=== PATIENT | male | born 1950 | race Caucasian/White ===

== ENCOUNTER 2020-07-11 08:47 | Outpatient (REF) | payer MEDICARE, BC, SELFPAY ==
[2020-07-11 10:07] LABS: MANUAL DIFF FLAG NO
[2020-07-11 10:15] LABS: Basophils Percent Auto 0.7 % (0-2); Eosinophils Absolute Auto 0.1 X10*3/uL (0.0-0.4); Eosinophils Percent Auto 2.1 % (0-4); Hemoglobin 16.2 g/dl (14.0-18.0); Imm Gran Abs Auto 0.02 X10*3/uL (0.00-0.03); Imm Gran Pct Auto 0.3 % (0.0-0.4); Mean Corpuscular HGB Conc 33.1 g/dl (31.0-36.0); Mean Corpuscular Hemoglobin 29.3 pg (27.0-33.0); Mean Corpuscular Volume 88.8 fL (80-98); Mean Platelet Volume 10.2 fL (9.4-12.4); Monocytes Absolute Auto 0.4 X10*3/uL (0.1-1.2); Monocytes Percent Auto 6.7 % (2-11); Neutrophils Absolute Auto 4.2 X10*3/uL (2.0-8.3); Neutrophils Percent Auto 72.2 % (45-73); Platelet Count 174 X10*3/uL (160-400); Red Blood Count 5.52 X10*6/uL (4.60-5.80); Red Cell Distribution Width 12.6 % (11.0-16.0); White Blood Count 5.8 X10*3/uL (4.8-10.8)
[2020-07-11 10:43] LABS: Alanine Aminotransferase 16 U/L (0-40); Albumin Level 4.3 g/dL (3.5-5.0); Alkaline Phosphatase 119 U/L (39-117); Anion Gap 12 (12-20); Aspartate Amino Transferase 17 U/L (5-37); Bilirubin Total 0.7 mg/dL (0.0-1.0); Blood Urea Nitrogen 20 mg/dL (9-16); Carbon Dioxide 28 mmol/L (22-29); Chloride 105 mmol/L (96-108); Estimated Glomerular Filt Rate 59; Glucose Fasting 97 mg/dL (60-99); Potassium 4.3 mmol/l (3.3-5.1); Sodium 141 mmol/L (135-145); Total Protein 7.3 g/dL (6.5-8.0)
[2020-07-11 15:12] LABS: Cholesterol 153 mg/dL; HDL Cholesterol 35 mg/dL; LDL Cholesterol Calculated 55 mg/dl; Triglycerides 317 mg/dL
== END 2020-07-11 08:48 | disposition home or self-care (01) ==
LOC: HO.LAB 08:47
PROVIDERS: PCP Internal Medicine; Visit Provider Nurse Practitioner Family
DX: I25.10 Atherosclerotic heart disease of native coronary artery without angina pectoris (principal); E78.5 Hyperlipidemia, unspecified
CPT/HCPCS: 36415; 80053; 80061; 85025

== ENCOUNTER → 2020-07-16 12:40 | Outpatient (BNVA) | payer MEDICARE, BC, SELFPAY | PROVIDERS: PCP Internal Medicine; Referring Provider Internal Medicine; Visit Provider Nurse Practitioner Family | DX: I25.10 Atherosclerotic heart disease of native coronary artery without angina pectoris (principal); I51.89 Other ill-defined heart diseases; I45.10 Unspecified right bundle-branch block; E78.5 Hyperlipidemia, unspecified; R52 Pain, unspecified; Z95.1 Presence of aortocoronary bypass graft | CPT/HCPCS: 99214 ==

== ENCOUNTER 2020-10-23 07:07 | Outpatient (REF) | payer MEDICARE, BC, SELFPAY ==
[2020-10-23 08:41] LABS: Cholesterol 249 mg/dL; HDL Cholesterol 35 mg/dL; Triglycerides 694 mg/dL
== END 2020-10-23 07:08 | disposition home or self-care (01) ==
LOC: HO.LAB 07:07
PROVIDERS: PCP Internal Medicine; Visit Provider Nurse Practitioner Family
DX: I25.10 Atherosclerotic heart disease of native coronary artery without angina pectoris (principal); E78.5 Hyperlipidemia, unspecified
CPT/HCPCS: 36415; 80061

== ENCOUNTER 2020-11-14 07:24 | Outpatient (REF) | payer MEDICARE, BC, SELFPAY ==
[2020-11-14 08:42] LABS: Cholesterol 216 mg/dL; HDL Cholesterol 31 mg/dL; Triglycerides 420 mg/dL
== END 2020-11-14 07:25 | disposition home or self-care (01) ==
LOC: HO.LAB 07:24
PROVIDERS: PCP Internal Medicine; Visit Provider Internal Medicine Cardiovascular Disease
DX: E78.5 Hyperlipidemia, unspecified (principal)
CPT/HCPCS: 36415; 80061

== ENCOUNTER 2020-12-05 09:46 | Outpatient (REF) | payer MEDICARE, BC, SELFPAY | END 2020-12-05 09:47 | disposition home or self-care (01) | LOC: HO.LAB 09:46 | PROVIDERS: Visit Provider Internal Medicine | DX: Z20.822 Contact with and (suspected) exposure to COVID-19 (principal) | CPT/HCPCS: 36415; C9803; U0003; U0005 ==

== ENCOUNTER 2021-01-22 07:33 | Outpatient (REF) | payer MEDICARE, BC, SELFPAY ==
[2021-01-22 08:32] LABS: MANUAL DIFF FLAG NO
[2021-01-22 08:41] LABS: Basophils Absolute Auto 0.1 X10*3/uL (0.0-0.2); Basophils Percent Auto 0.8 % (0-2); Eosinophils Absolute Auto 0.2 X10*3/uL (0.0-0.4); Hemoglobin 16.6 g/dl (14.0-18.0); Imm Gran Abs Auto 0.01 X10*3/uL (0.00-0.03); Imm Gran Pct Auto 0.2 % (0.0-0.4); Lymphocytes Absolute Auto 1.4 X10*3/uL (1.2-4.9); Lymphocytes Percent Auto 22.3 % (20-40); Mean Corpuscular HGB Conc 32.5 g/dl (31.0-36.0); Mean Corpuscular Hemoglobin 28.9 pg (27.0-33.0); Mean Corpuscular Volume 88.9 fL (80-98); Mean Platelet Volume 10.1 fL (9.4-12.4); Monocytes Absolute Auto 0.4 X10*3/uL (0.1-1.2); Monocytes Percent Auto 6.9 % (2-11); Neutrophils Absolute Auto 4.3 X10*3/uL (2.0-8.3); Neutrophils Percent Auto 66.8 % (45-73); Platelet Count 190 X10*3/uL (160-400); Red Blood Count 5.74 X10*6/uL (4.60-5.80); Red Cell Distribution Width 13.1 % (11.0-16.0); White Blood Count 6.4 X10*3/uL (4.8-10.8)
[2021-01-22 09:15] LABS: Erythrocyte Sedimentation Rate 5 MM/HR (0-15)
[2021-01-22 09:18] LABS: Alanine Aminotransferase 24 U/L (0-40); Albumin Level 4.6 g/dL (3.5-5.0); Alkaline Phosphatase 130 U/L (39-117); Anion Gap 12 (12-20); Aspartate Amino Transferase 19 U/L (5-37); Bilirubin Total 0.5 mg/dL (0.0-1.0); Blood Urea Nitrogen 25 mg/dL (9-16); C Reactive Protein 0.34 mg/dL (< or = 0.50); Calcium 9.7 mg/dL (8.4-10.2); Carbon Dioxide 30 mmol/L (22-29); Chloride 105 mmol/L (96-108); Cholesterol 244 mg/dL; Estimated Glomerular Filt Rate 58; Glucose Fasting 107 mg/dL (60-99); HDL Cholesterol 35 mg/dL; Potassium 4.5 mmol/L (3.3-5.1); Sodium 142 mmol/L (135-145); Total Protein 7.8 g/dL (6.5-8.0); Triglycerides 471 mg/dL
[2021-01-22 09:39] LABS: Vitamin D 25-OH Total 31.8 ng/mL (>30)
[2021-01-23 07:47] LABS: SARS COV2 IgG Negative (Negative)
== END 2021-01-22 07:34 | disposition home or self-care (01) ==
LOC: HO.LAB 07:33
PROVIDERS: PCP Internal Medicine; Visit Provider Internal Medicine
DX: M25.50 Pain in unspecified joint (principal); I25.10 Atherosclerotic heart disease of native coronary artery without angina pectoris; F41.1 Generalized anxiety disorder; E55.9 Vitamin D deficiency, unspecified; Z20.822 Contact with and (suspected) exposure to COVID-19
CPT/HCPCS: 36415; 80053; 80061; 82306; 84443; 85025; 85652; 86140; 86431; 86769; C9803; U0003; U0005

== ENCOUNTER → 2021-01-28 15:04 | Outpatient (BNVA) | payer MEDICARE, BC, SELFPAY | PROVIDERS: PCP Internal Medicine; Visit Provider Internal Medicine Cardiovascular Disease | DX: R07.9 Chest pain, unspecified (principal); I25.10 Atherosclerotic heart disease of native coronary artery without angina pectoris; E78.5 Hyperlipidemia, unspecified; Z79.899 Other long term (current) drug therapy; Z87.891 Personal history of nicotine dependence | CPT/HCPCS: 99212 ==

== ENCOUNTER → 2021-02-08 07:50 | Outpatient (REF) | payer MEDICARE, BC, SELFPAY ==
--- NOTE | ~2021-02-08 | NM_ITS ---
EXERCISE MYOCARDIAL PERFUSION STUDY INDICATION: Coronary disease, history of bypass surgery, chest pain, assess for ischemia TECHNIQUE: The patient was brought in for an exercise perfusion study on 02/08/2021. Patient performed exercise as per Stew protocol and was injected 25 mCi of sestamibi once target heart rate was achieved. Images were obtained using the SPECT gamma camera interlaced with the gating device. Images were obtained in supine position. Resting perfusion study was performed on 02/12/2021. Patient was administered 25 mCi of sestamibi intravenously at rest. Images were then obtained in supine position. Total DLP 75mGy-cm. Images were processed with the software and compared side to side in short axis, horizontal long axis and vertical long axis views. FINDINGS: Raw images were reviewed. The stress perfusion study showed diminished tracer uptake in the mid to distal anterior/anterolateral wall; basal to mid inferior/inferolateral wall. With CT attenuation correction, these defects improve. Inferior defect seems to reversible almost completely but the anterolateral defect is still persisting to a small extent. The gated study shows low normal LV systolic function with calculated LVEF of 54%. LV cavity is normal in size. The gated study shows diminished thickening and contractility in the above segments. Resting study shows still shows a defect in the mid to distal anterolateral wall but to a lesser extent. Basal inferolateral defect is reversible. Inferior defect shows improvement but does not resolve completely. Gating at rest reveals ejection fraction at 54%. With CT attenuation correction, the inferior/inferolateral changes improve significantly but the distal anterolateral defect still persists. The findings are consistent with partially reversible defect in the mid to distal anterior/anterolateral wall; reversible defects in the basal to mid inferior/inferolateral wall. The anterior/anterolateral defect could be from ischemia/infarct. The inferior defect could be from diaphragmatic artifact based on resolution with CT attenuation correction. NM/NM cardiolite stress test IMPRESSION: 1. Myocardial perfusion imaging study shows partially reversible defect in the mid to distal anterior/anterolateral wall that could be from ischemia/infarct. Basal to mid inferior/inferolateral wall with some reversible and fixed components but with significant improvement from CT attenuation correction and hence possibly from diaphragmatic artifact but ischemic components cannot be excluded completely. 2. Gated LVEF is 54% during stress and rest. 3. Transient ischemic dilatation not present. EKG component of the test reported separately.
--- NOTE | 2021-02-08 08:00 | CA_ITS ---
Acquisition Time: 2021-02-08 08:08:55 Total Exercise Time: 00:06:06 Test Indications: Abnormal ECG Medications: ASA CLOPIDOGREL TRAMADOL LORAZAPAM Protocol: NBA Max HR: 134 BPM 88% of Pred: 151 BPM Max BP: 178/090 mmHG Max Work Load: 7.0 METS Exercise stress nuclear using Nba protocol, total of 6 min 6 sec. METS 7.00, TAPHR up to 88 %. Pt reports chest thightness 5/10 that resolves in recovery. EKG with no arrhythmias, no ischemic changes seen during exercise or in recovery. Nuclear images to follow. Normotensive response to exercise. Test reviewed with Dr. Gupta. Referred By: Leonardo Guerrero Overread By: Kristal Rodriguez NP
== END ==
LOC: HO.CARD 07:50
PROVIDERS: Visit Provider Internal Medicine Cardiovascular Disease
DX: R07.9 Chest pain, unspecified (principal)
CPT/HCPCS: 78452; 93016; 93017; 93018; A9500

== ENCOUNTER → 2021-02-14 15:41 | Outpatient (BNVA) | payer MEDICARE, BC, SELFPAY | PROVIDERS: PCP Internal Medicine; Visit Provider Internal Medicine Cardiovascular Disease | DX: I25.10 Atherosclerotic heart disease of native coronary artery without angina pectoris (principal); R07.9 Chest pain, unspecified | CPT/HCPCS: Q3014 ==

== ENCOUNTER 2021-03-06 07:16 | Outpatient (REF) | payer MEDICARE, BC, SELFPAY ==
[2021-03-06 09:11] LABS: Cholesterol 199 mg/dL; HDL Cholesterol 33 mg/dL; LDL Cholesterol Calculated 108 mg/dl; Triglycerides 294 mg/dL
== END 2021-03-06 07:17 | disposition home or self-care (01) ==
LOC: HO.LAB 07:16
PROVIDERS: PCP Internal Medicine; Visit Provider Internal Medicine Cardiovascular Disease
DX: E78.5 Hyperlipidemia, unspecified (principal)
CPT/HCPCS: 36415; 80061

== ENCOUNTER → 2021-03-11 14:45 | Outpatient (BNVA) | payer MEDICARE, BC, SELFPAY | PROVIDERS: PCP Internal Medicine; Referring Provider Internal Medicine; Visit Provider Internal Medicine Cardiovascular Disease | DX: R07.9 Chest pain, unspecified (principal); I25.10 Atherosclerotic heart disease of native coronary artery without angina pectoris; Z79.899 Other long term (current) drug therapy | CPT/HCPCS: 99212 ==

== ENCOUNTER 2021-04-16 07:17 | Outpatient (REF) | payer MEDICARE, BC, SELFPAY ==
[2021-04-16 08:59] LABS: Cholesterol 186 mg/dL; HDL Cholesterol 40 mg/dL; LDL Cholesterol Calculated 109 mg/dl; Triglycerides 185 mg/dL
== END 2021-04-16 07:18 | disposition home or self-care (01) ==
LOC: HO.LAB 07:17
PROVIDERS: Absent Provider Urology; PCP Internal Medicine; Visit Provider Internal Medicine Cardiovascular Disease
DX: I25.10 Atherosclerotic heart disease of native coronary artery without angina pectoris (principal); R97.20 Elevated prostate specific antigen [PSA]
CPT/HCPCS: 36415; 80061; 84153

== ENCOUNTER 2021-06-13 07:36 | Outpatient (REF) | payer MEDICARE, BC, SELFPAY ==
[2021-06-13 09:04] LABS: Cholesterol 187 mg/dL; HDL Cholesterol 37 mg/dL; LDL Cholesterol Calculated 115 mg/dl; Triglycerides 177 mg/dL
== END 2021-06-13 07:37 | disposition home or self-care (01) ==
LOC: HO.LAB 07:36
PROVIDERS: PCP Internal Medicine; Visit Provider Internal Medicine Cardiovascular Disease
DX: E78.5 Hyperlipidemia, unspecified (principal); I25.10 Atherosclerotic heart disease of native coronary artery without angina pectoris
CPT/HCPCS: 36415; 80061

== ENCOUNTER → 2021-06-18 14:24 | Outpatient (BNVA) | payer MEDICARE, BC, SELFPAY | PROVIDERS: PCP Internal Medicine; Visit Provider Internal Medicine Cardiovascular Disease | DX: I25.10 Atherosclerotic heart disease of native coronary artery without angina pectoris (principal); E78.5 Hyperlipidemia, unspecified | CPT/HCPCS: 99212 ==

== ENCOUNTER 2021-07-01 11:36 | Outpatient (REF) | payer MEDICARE, BC, SELFPAY | END 2021-07-01 11:37 | disposition home or self-care (01) | LOC: HO.LAB 11:36 | PROVIDERS: PCP Internal Medicine; Visit Provider Internal Medicine | DX: Z20.822 Contact with and (suspected) exposure to COVID-19 (principal) | CPT/HCPCS: U0003; U0005 ==

== ENCOUNTER → 2021-09-03 07:57 | Outpatient (BNVA) | payer MEDICARE, BC, SELFPAY | PROVIDERS: PCP Internal Medicine; Visit Provider Nurse Practitioner Family | DX: M19.041 Primary osteoarthritis, right hand (principal); M25.521 Pain in right elbow | CPT/HCPCS: 99212 ==

== ENCOUNTER 2021-09-10 08:17 | Outpatient (REF) | payer MEDICARE, BC, SELFPAY ==
[2021-09-10 09:59] LABS: Cholesterol 195 mg/dL; HDL Cholesterol 35 mg/dL; LDL Cholesterol Calculated 127 mg/dl; Triglycerides 169 mg/dL
[2021-09-12 13:42] LABS: CRP High Sensitivity 2.9 mg/L
== END 2021-09-10 08:18 | disposition home or self-care (01) ==
LOC: HO.LAB 08:17
PROVIDERS: PCP Internal Medicine; Visit Provider Internal Medicine Cardiovascular Disease
DX: E78.5 Hyperlipidemia, unspecified (principal); I25.10 Atherosclerotic heart disease of native coronary artery without angina pectoris
CPT/HCPCS: 36415; 80061; 86141

== ENCOUNTER 2021-11-28 07:22 | Outpatient (REF) | payer MEDICARE, BC, SELFPAY ==
[2021-11-28 08:44] LABS: Cholesterol 213 mg/dL; HDL Cholesterol 37 mg/dL; LDL Cholesterol Calculated 135 mg/dl; Triglycerides 206 mg/dL
== END 2021-11-28 07:23 | disposition home or self-care (01) ==
LOC: HO.LAB 07:22
PROVIDERS: PCP Internal Medicine; Visit Provider Internal Medicine Cardiovascular Disease
DX: E78.5 Hyperlipidemia, unspecified (principal)
CPT/HCPCS: 36415; 80061

== ENCOUNTER → 2021-12-03 13:53 | Outpatient (BNVA) | payer MEDICARE, BC, SELFPAY | PROVIDERS: PCP Internal Medicine Cardiovascular Disease; Visit Provider Internal Medicine Cardiovascular Disease | DX: I25.10 Atherosclerotic heart disease of native coronary artery without angina pectoris (principal); E78.5 Hyperlipidemia, unspecified | CPT/HCPCS: 93005; 99212 ==

== ENCOUNTER 2022-01-21 09:34 | Outpatient (REF) | payer MEDICARE, BC, SELFPAY ==
[2022-01-21 10:59] LABS: Alanine Aminotransferase 25 U/L (0-40); Albumin Level 4.3 g/dL (3.5-5.0); Alkaline Phosphatase 124 U/L (39-117); Anion Gap 13 (12-20); Aspartate Amino Transferase 22 U/L (5-37); Bilirubin Total 0.5 mg/dL (0.0-1.0); Blood Urea Nitrogen 19 mg/dL (9-16); Calcium 9.4 mg/dL (8.4-10.2); Carbon Dioxide 27 mmol/L (22-29); Chloride 105 mmol/L (96-108); Estimated Glomerular Filt Rate 52; Glucose Random 119 mg/dL (60-115); Potassium 4.5 mmol/L (3.3-5.1); Sodium 140 mmol/L (135-145); Total Protein 7.6 g/dL (6.5-8.0)
== END 2022-01-21 09:35 | disposition home or self-care (01) ==
LOC: HO.LAB 09:34
PROVIDERS: PCP Internal Medicine; Visit Provider Nurse Practitioner Family
DX: M19.041 Primary osteoarthritis, right hand (principal)
CPT/HCPCS: 36415; 80053

== ENCOUNTER 2022-01-23 08:29 | Outpatient (REF) | payer MEDICARE, BC, SELFPAY ==
[2022-01-23 09:24] LABS: B Type Natriuretic Peptide 15 pg/mL (<100)
== END 2022-01-23 08:30 | disposition home or self-care (01) ==
LOC: HO.LAB 08:29
PROVIDERS: PCP Internal Medicine; Visit Provider Internal Medicine Cardiovascular Disease
DX: I25.10 Atherosclerotic heart disease of native coronary artery without angina pectoris (principal); R06.02 Shortness of breath; I45.10 Unspecified right bundle-branch block
CPT/HCPCS: 36415; 83880

== ENCOUNTER → 2022-01-27 07:34 | Outpatient (REF) | payer MEDICARE, BC, SELFPAY ==
--- NOTE | 2022-01-27 07:39 | CA_ITS ---
Transthoracic Echocardiogram Patient (Last, First, Middle): Luis Miguel May, Gender: Male Date of : 1950 Age: 71 Procedure Date: 01/27/2022 Procedure Type: Transthoracic Echocardiogram Location: OP Height: 172.72 cm Weight: 77.11 kg BSA: 1.91 m2 Heart Rate: bpm BP: 120 / 78 mmHg [employer] Economist: JAY Referring MD: Leonardo Guerrero MD Symptoms: R06.02 - Shortness of breath Study Quality: Fair ECG Rhythm: Sinus Conclusions: - The left ventricular systolic function is low normal. The visually estimated ejection fraction is between 50-55%. - LV peak GLS -14%. - There is mildly decreased right ventricular systolic function. - There is mild calcification of the aortic valve. Findings Left Ventricle Normal left ventricular cavity size. There is mildly increased left ventricular wall thickness. The left ventricular systolic function is low normal. The visually estimated ejection fraction is between 50-55%. Diastolic function is normal for age. E/E prime ratio is <8, consistent with normal filling pressures. LV peak GLS -14%. Right Ventricle Normal right ventricular cavity size. There is mildly decreased right ventricular systolic function. Atria Both atria are normal in size. Aortic Valve There is a normal trileaflet aortic valve. There is mild calcification of the aortic valve. There is no aortic valve stenosis. There is no aortic valve regurgitation. Mitral Valve The mitral valve appears normal. There is trace mitral valve regurgitation. There is no mitral valve stenosis. Pulmonic Valve The pulmonic valve is likely normal. Tricuspid Valve Normal tricuspid valve structure and function. There is trace tricuspid valve regurgitation. The pulmonary artery systolic pressure is normal. Great Vessels The asc aorta and aortic arch are normal in size. Venous The inferior vena cava is normal in size and collapses less than 50% with inspiration. Pericardium/Pleural There is no evidence of pericardial effusion. Prior Study Comparison Changes noted compared to prior study dated: 01/20/2017. Slight decrease in LVEF, but within limits of variability. Decrease in RV systolic function. Measurements 2D Linear Measurements IVSd: 1.03 0.6-0.9/0.6-1.0 cm LVIDd: 3.08 3.9-5.3/4.2-5.9 cm LVIDd Index: 1.61 2.4-3.2/2.2-3.1 cm/m2 LVIDs: 2.13 2.0-3.6 cm LVPWd: 1.04 0.7-1.1 cm LA Diam: 3.30 2.7-3.8/3.0-4.0 cm LAIDs Index: 1.73 1.5-2.3 cm/m2 LV Mass: 111.67 67-162/88-224 g LV Mass Index: 58.46 43-95/49-115 g/m2 LVOT Diam: 2.10 3.0+(-)1.3 cm 2D Systolic Function EF 4C: 54.50 >55% EF 2C: 55.50 >55% EF BiP: 55.60 >55% Mitral Valve MV Pk E: 0.50 MV PK A: 0.79 MV Decel Time: 186.00 E/A: 0.60 E'Lateral: 6.09 E'Medial: 6.09 E/E' Med: 8.20 E/E' Lat: 8.20 PHT: 55.00 MVA PHT: 4.00 Decel [place]: 2.69 Aortic Valve AoV Pk Endy: 1.16 AoV Mn Endy: 0.85 AoV VTI: 0.20 AoV Pk Grad: 5.00 Aov Mn Grad: 3.00 VIJAY Cont.VTI: 3.51 LVOT LVOT Pk Endy: 1.06 LVOT Mn Endy: 0.66 LVOT VTI: 0.21 LVOT Pk Grad: 4.00 LVOT Mn Grad: 2.00 LVOT Diam: 2.10 LVOT Area: 3.46 Diastolic Function MV Pk E: 0.50 MV Pk A: 0.79 E/A: 0.60 E'Medial: 6.09 E/E' Med: 8.20 E' Laterial: 6.09 E/E' Lat: 8.20 Right Ventricle TAPSE (mm): 15.60 TVS' Endy: 10.60 Tricuspid Valve TR Pk Endy: 1.67 TR Pk Grad: 11.00 RA Press: 8.00 RVSP: 19.00 Great Vessels Aorta Sinus of Valsalva: 3.44 2.0-3.5 cm Ao Asc: 3.50 2.1-3.4 cm Ao Arch: 3.10 Updated in Other Vendor System with Status of Final Stepan Nergon MD electronically signed on 01/27/2022 12:02:42 PM with status of Final
== END ==
LOC: HO.CARD 07:34
PROVIDERS: PCP Internal Medicine; Visit Provider Internal Medicine Cardiovascular Disease
DX: R06.02 Shortness of breath (principal); I25.10 Atherosclerotic heart disease of native coronary artery without angina pectoris; I45.10 Unspecified right bundle-branch block
CPT/HCPCS: 93306; 93356

== ENCOUNTER 2022-01-29 10:34 | Outpatient (REF) | payer MEDICARE, BC, SELFPAY ==
[2022-01-29 12:33] LABS: Hematocrit 48.3 % (42.0-52.0); Hemoglobin 15.9 g/dl (14.0-18.0); Mean Corpuscular HGB Conc 32.9 g/dl (31.0-36.0); Mean Corpuscular Hemoglobin 28.9 pg (27.0-33.0); Mean Corpuscular Volume 87.7 fL (80.0-98.0); Mean Platelet Volume 9.7 fL (9.4-12.4); Platelet Count 208 X10*3/uL (160-400); Red Blood Count 5.51 X10*6/uL (4.60-5.80); White Blood Count 6.4 X10*3/uL (4.8-10.8)
[2022-01-29 12:42] LABS: INTERNATIONAL NORM RATIO 0.9 (0.9-1.1); Prothrombin Time 10.6 SEC (9.9-13.0)
[2022-01-29 12:55] LABS: Anion Gap 14 (12-20); Blood Urea Nitrogen 22 mg/dL (9-16); Calcium 10.3 mg/dL (8.4-10.2); Carbon Dioxide 28 mmol/L (22-29); Chloride 103 mmol/L (96-108); Estimated Glomerular Filt Rate > 60; Glucose Random 85 mg/dL (60-115); Potassium 4.6 mmol/L (3.3-5.1); Sodium 140 mmol/L (135-145)
== END 2022-01-29 10:35 | disposition home or self-care (01) ==
LOC: HO.LAB 10:34
PROVIDERS: PCP Internal Medicine; Referring Provider Internal Medicine; Visit Provider Internal Medicine Cardiovascular Disease
DX: R07.9 Chest pain, unspecified (principal); Z79.899 Other long term (current) drug therapy; Z87.891 Personal history of nicotine dependence
CPT/HCPCS: 36415; 80048; 85027; 85610; 93005; 99212

== ENCOUNTER 2022-02-18 07:43 | Outpatient (REF) | payer MEDICARE, BC, SELFPAY ==
[2022-02-18 08:23] LABS: Cholesterol 185 mg/dL; HDL Cholesterol 34 mg/dL; LDL Cholesterol Calculated 110 mg/dl; Triglycerides 206 mg/dL
== END 2022-02-18 07:44 | disposition home or self-care (01) ==
LOC: HO.LAB 07:43
PROVIDERS: PCP Internal Medicine; Visit Provider Internal Medicine Cardiovascular Disease
DX: I25.10 Atherosclerotic heart disease of native coronary artery without angina pectoris (principal)
CPT/HCPCS: 36415; 80061

== ENCOUNTER 2022-02-21 11:13 | Outpatient (REF) | payer MEDICARE, BC, SELFPAY ==
[2022-02-21 12:35] LABS: Hematocrit 47.6 % (42.0-52.0); Hemoglobin 15.7 g/dl (14.0-18.0); Mean Corpuscular Hemoglobin 29.1 pg (27.0-33.0); Mean Corpuscular Volume 88.3 fL (80.0-98.0); Mean Platelet Volume 9.9 fL (9.4-12.4); Platelet Count 211 X10*3/uL (160-400); Red Blood Count 5.39 X10*6/uL (4.60-5.80); White Blood Count 6.2 X10*3/uL (4.8-10.8)
[2022-02-21 12:58] LABS: INTERNATIONAL NORM RATIO 0.9 (0.9-1.1); Prothrombin Time 10.7 SEC (9.9-13.0)
[2022-02-21 13:14] LABS: Anion Gap 12 (12-20); Blood Urea Nitrogen 20 mg/dL (9-16); Calcium 9.8 mg/dL (8.4-10.2); Carbon Dioxide 27 mmol/L (22-29); Chloride 105 mmol/L (96-108); Estimated Glomerular Filt Rate 59; Glucose Random 94 mg/dL (60-115); Potassium 4.7 mmol/L (3.3-5.1); Sodium 139 mmol/L (135-145)
== END 2022-02-21 11:14 | disposition home or self-care (01) ==
LOC: HO.LAB 11:13
PROVIDERS: PCP Internal Medicine; Referring Provider Internal Medicine; Visit Provider Internal Medicine Cardiovascular Disease
DX: R07.9 Chest pain, unspecified (principal)
CPT/HCPCS: 36415; 80048; 85027; 85610; 99212

== ENCOUNTER → 2022-03-27 08:37 | Outpatient (BNVA) | payer MEDICARE, BC, SELFPAY | PROVIDERS: PCP Internal Medicine; Referring Provider Internal Medicine; Visit Provider Internal Medicine Cardiovascular Disease | DX: I25.10 Atherosclerotic heart disease of native coronary artery without angina pectoris (principal); Z95.5 Presence of coronary angioplasty implant and graft | CPT/HCPCS: 99212 ==

== ENCOUNTER 2022-05-08 07:17 | Outpatient (REF) | payer MEDICARE, BC, SELFPAY ==
[2022-05-08 07:41] LABS: MANUAL DIFF FLAG NO
[2022-05-08 08:23] LABS: Basophils Absolute Auto 0.1 X10*3/uL (0.0-0.2); Basophils Percent Auto 0.8 % (0-2); Eosinophils Absolute Auto 0.2 X10*3/uL (0.0-0.4); Eosinophils Percent Auto 2.2 % (0-4); Hemoglobin 16.1 g/dl (14.0-18.0); Imm Gran Abs Auto 0.05 X10*3/uL (0.00-0.03); Imm Gran Pct Auto 0.7 % (0.0-0.4); Lymphocytes Absolute Auto 1.5 X10*3/uL (1.2-4.9); Lymphocytes Percent Auto 21.3 % (20-40); Mean Corpuscular HGB Conc 33.5 g/dl (31.0-36.0); Mean Corpuscular Hemoglobin 28.9 pg (27.0-33.0); Mean Corpuscular Volume 86.2 fL (80.0-98.0); Mean Platelet Volume 9.7 fL (9.4-12.4); Monocytes Absolute Auto 0.6 X10*3/uL (0.1-1.2); Neutrophils Absolute Auto 4.8 x10*3/uL (2.0-8.3); Platelet Count 210 X10*3/uL (160-400); Red Blood Count 5.57 X10*6/uL (4.60-5.80); Red Cell Distribution Width 13.2 % (11.0-16.0); White Blood Count 7.2 X10*3/uL (4.8-10.8)
[2022-05-08 08:50] LABS: Alanine Aminotransferase 21 U/L (0-40); Albumin Level 4.5 g/dL (3.5-5.0); Alkaline Phosphatase 124 U/L (39-117); Anion Gap 16 (12-20); Aspartate Amino Transferase 17 U/L (5-37); Bilirubin Total 0.5 mg/dL (0.0-1.0); Blood Urea Nitrogen 23 mg/dL (9-16); C Reactive Protein 0.24 mg/dL (< or = 0.50); Calcium 9.2 mg/dL (8.4-10.2); Carbon Dioxide 25 mmol/L (22-29); Chloride 105 mmol/L (96-108); Cholesterol 156 mg/dL; Estimated Glomerular Filt Rate 44; Glucose Fasting 113 mg/dL (60-99); HDL Cholesterol 37 mg/dL; LDL Cholesterol Calculated 52 mg/dl; Potassium 4.6 mmol/L (3.3-5.1); Sodium 141 mmol/L (135-145); Total Protein 7.7 g/dL (6.5-8.0); Triglycerides 336 mg/dL
[2022-05-08 08:55] LABS: Cholesterol 155 mg/dL; HDL Cholesterol 37 mg/dL; LDL Cholesterol Calculated 50 mg/dl; Triglycerides 344 mg/dL
[2022-05-08 09:04] LABS: Erythrocyte Sedimentation Rate 7 MM/HR (0-15)
[2022-05-08 09:12] LABS: Thyroid Stimulating Hormone 2.27 uIU/mL (0.32-4.0); Vitamin D 25-OH Total 45.8 ng/mL (>30)
[2022-05-10 05:02] LABS: Lyme Abs Screen <0.90 index
[2022-05-12 13:16] LABS: SARS COV2 IgG NEGATIVE
== END 2022-05-08 07:18 | disposition home or self-care (01) ==
LOC: HO.LAB 07:17
PROVIDERS: Absent Provider Internal Medicine; PCP Internal Medicine; Visit Provider Internal Medicine Cardiovascular Disease
DX: Z20.822 Contact with and (suspected) exposure to COVID-19 (principal); R07.1 Chest pain on breathing; I25.10 Atherosclerotic heart disease of native coronary artery without angina pectoris; F41.1 Generalized anxiety disorder; E55.9 Vitamin D deficiency, unspecified
CPT/HCPCS: 36415; 80053; 80061; 82306; 84443; 85025; 85652; 86140; 86617; 86618; 86769

== ENCOUNTER 2022-06-20 08:17 | Outpatient (REF) | payer MEDICARE, BC, SELFPAY ==
[2022-06-20 08:57] LABS: Cholesterol 153 mg/dL; HDL Cholesterol 31 mg/dL; Triglycerides 479 mg/dL
== END 2022-06-20 08:18 | disposition home or self-care (01) ==
LOC: HO.LAB 08:17
PROVIDERS: PCP Internal Medicine; Visit Provider Internal Medicine Cardiovascular Disease
DX: I25.10 Atherosclerotic heart disease of native coronary artery without angina pectoris (principal)
CPT/HCPCS: 36415; 80061

== ENCOUNTER → 2022-06-26 09:01 | Outpatient (BNVA) | payer MEDICARE, BC, SELFPAY | PROVIDERS: PCP Internal Medicine; Referring Provider Internal Medicine; Visit Provider Internal Medicine Cardiovascular Disease | DX: I25.10 Atherosclerotic heart disease of native coronary artery without angina pectoris (principal) | CPT/HCPCS: 99212 ==

== ENCOUNTER 2022-08-06 07:05 | Outpatient (REF) | payer MEDICARE, BC, SELFPAY ==
[2022-08-06 07:50] LABS: Cholesterol 128 mg/dL; HDL Cholesterol 31 mg/dL; LDL Cholesterol Calculated 44 mg/dl; Triglycerides 269 mg/dL
[2022-08-09 14:36] LABS: CRP High Sensitivity 1.7 mg/L
== END 2022-08-06 07:06 | disposition home or self-care (01) ==
LOC: HO.LAB 07:05
PROVIDERS: PCP Internal Medicine; Visit Provider Internal Medicine Cardiovascular Disease
DX: I25.10 Atherosclerotic heart disease of native coronary artery without angina pectoris (principal); E78.5 Hyperlipidemia, unspecified
CPT/HCPCS: 36415; 80061; 86141

== ENCOUNTER 2022-08-14 07:54 | Outpatient (REF) | payer MEDICARE, BC, SELFPAY ==
[2022-08-14 11:47] LABS: Alanine Aminotransferase 17 U/L (0-40); Albumin Level 4.6 g/dL (3.5-5.0); Alkaline Phosphatase 110 U/L (39-117); Anion Gap 14 (12-20); Aspartate Amino Transferase 16 U/L (5-37); Bilirubin Total 0.4 mg/dL (0.0-1.0); Blood Urea Nitrogen 24 mg/dL (9-16); Calcium 9.5 mg/dL (8.4-10.2); Carbon Dioxide 26 mmol/L (22-29); Chloride 106 mmol/L (96-108); Cholesterol 119 mg/dL; Estimated Glomerular Filt Rate 55; Glucose Fasting 121 mg/dL (60-99); HDL Cholesterol 42 mg/dL; LDL Cholesterol Calculated 46 mg/dl; Potassium 4.5 mmol/L (3.3-5.1); Sodium 141 mmol/L (135-145); Total Protein 7.5 g/dL (6.5-8.0); Triglycerides 156 mg/dL
== END 2022-08-14 07:55 | disposition home or self-care (01) ==
LOC: HO.HMGCLDS 07:54
PROVIDERS: PCP Internal Medicine; Visit Provider Internal Medicine
DX: I25.10 Atherosclerotic heart disease of native coronary artery without angina pectoris (principal)
CPT/HCPCS: 36415; 80053; 80061

== ENCOUNTER → 2022-08-19 11:10 | Outpatient (BNVA) | payer MEDICARE, BC, SELFPAY | PROVIDERS: PCP Internal Medicine; Referring Provider Internal Medicine; Visit Provider Internal Medicine Cardiovascular Disease | DX: I25.10 Atherosclerotic heart disease of native coronary artery without angina pectoris (principal); Z79.01 Long term (current) use of anticoagulants; Z79.02 Long term (current) use of antithrombotics/antiplatelets; Z79.899 Other long term (current) drug therapy | CPT/HCPCS: 99212 ==

== ENCOUNTER 2023-11-14 09:21 | Outpatient (REF) | payer MEDICARE, BC, SELFPAY ==
[2023-11-14 11:24] LABS: MANUAL DIFF FLAG NO
[2023-11-14 11:33] LABS: Basophils Absolute Auto 0.1 X10*3/uL (0.0-0.2); Eosinophils Absolute Auto 0.2 X10*3/uL (0.0-0.4); Eosinophils Percent Auto 1.8 % (0-4); Hematocrit 50.4 % (42.0-52.0); Hemoglobin 17.2 g/dl (14.0-18.0); Imm Gran Abs Auto 0.05 X10*3/uL (0.00-0.03); Imm Gran Pct Auto 0.6 % (0.0-0.4); Lymphocytes Absolute Auto 1.5 X10*3/uL (1.2-4.9); Lymphocytes Percent Auto 17.7 % (20-40); Mean Corpuscular HGB Conc 34.1 g/dl (31.0-36.0); Mean Corpuscular Hemoglobin 29.8 pg (27.0-33.0); Mean Corpuscular Volume 87.3 fL (80.0-98.0); Mean Platelet Volume 10.6 fL (9.4-12.4); Monocytes Absolute Auto 0.6 X10*3/uL (0.1-1.2); Monocytes Percent Auto 7.3 % (2-11); Neutrophils Absolute Auto 5.9 x10*3/uL (2.0-8.3); Neutrophils Percent Auto 71.6 % (45-73); Platelet Count 178 X10*3/uL (160-400); Red Blood Count 5.77 X10*6/uL (4.60-5.80); Red Cell Distribution Width 13.2 % (11.0-16.0); White Blood Count 8.3 X10*3/uL (4.8-10.8)
[2023-11-14 11:59] LABS: Alanine Aminotransferase 35 U/L (0-40); Albumin Level 4.4 g/dL (3.5-5.0); Alkaline Phosphatase 162 U/L (39-117); Anion Gap 13 (12-20); Aspartate Amino Transferase 28 U/L (5-37); Bilirubin Total 0.3 mg/dL (0.0-1.0); Blood Urea Nitrogen 21 mg/dL (9-16); Calcium 9.6 mg/dL (8.4-10.2); Carbon Dioxide 30 mmol/L (22-29); Chloride 101 mmol/L (96-108); Estimated Glomerular Filt Rate 58; Glucose Random 133 mg/dL (60-115); Potassium 3.9 mmol/L (3.3-5.1); Sodium 140 mmol/L (135-145); Total Protein 7.9 g/dL (6.5-8.0)
== END 2023-11-14 09:22 | disposition home or self-care (01) ==
LOC: HO.HMGCLDS 09:21
PROVIDERS: PCP Internal Medicine; Visit Provider Internal Medicine
DX: J02.9 Acute pharyngitis, unspecified (principal); I25.10 Atherosclerotic heart disease of native coronary artery without angina pectoris; E55.9 Vitamin D deficiency, unspecified; F41.1 Generalized anxiety disorder
CPT/HCPCS: 36415; 80053; 85025

== ENCOUNTER 2024-07-29 12:45 | Outpatient (AMB) | payer MEDICARE, BC, SELFPAY ==
[2024-07-29 13:05] VITALS: BP 127/68; PULSE 52; O2SAT 97; BMI 26.5
--- NOTE | 2024-07-29 13:05 | MHC.OFFVIS ---
Vital Signs 07/29/24 13:05 Height 5 ft 8 in Weight 174 lb BMI 26.5 BP 127/68 Blood Pressure Location Rt brachial Position Sitting Pulse 52 Pulse Source Pulse Oximeter Pulse Oximetry (%) 97 Oxygen Delivery Method Room Air Intake Visit Reasons: Left Leg Claudication Allergies alirocumab [From Praluent Pen] Allergy (Intermediate, Verified 07/29/24 13:06) flu like amoxicillin Allergy (Intermediate, Verified 07/29/24 13:06) Rash evolocumab [From Repatha SureClick] Allergy (Intermediate, Verified 07/29/24 13:06) flu like gabapentin Allergy (Intermediate, Verified 07/29/24 13:06) rash NSAIDS Allergy (Unknown, Uncoded 07/29/24 13:06) reaction with blood thinners statins Adverse Reaction (Intermediate, Uncoded 07/29/24 13:06) Muscle Pain Medication List - Last Reconciled 07/29/24 by Apurva Martin aspirin (Adult Low Dose Aspirin) 81 mg PO DAILY atenolol 25 mg PO BID betamethasone dipropionate 0.05% 1 appl topical BID PRN chlorthalidone 25 mg PO DAILY cholecalciferol (vitamin D3) 50 mcg PO DAILY clopidogrel 75 mg PO DAILY colchicine 0.6 mg PO DAILY evolocumab (Repatha SureClick) 140 mg subcut Q2W lorazepam 1 mg PO BEDTIME PRN multivitamin 1 tab PO DAILY HPI Comments Details: Luis Miguel is a very pleasant 74-year-old male who presents to the office today for evaluation management of his chronic bilateral lower extremity pain Past medical history significant for osteoarthritis, CABG, right bundle branch block, GERD, high cholesterol, bilateral lower extremity claudication Has been suffering with this pain for approximately 6 years. He states it started after he had open heart surgery that required leans to be harvested from his leg He has also suffered with bilateral lower extremity claudication, has undergone multiple vascular procedures for this. 2021 he ended up with compartment syndrome in the left leg He endorses pain from the hips all the way down to the feet on both sides. Was recently be seen by vascular told there was no other options for treatment as far they are concerned. Pain today is as 7/10, constant and worse in the morning and throughout the day In terms of muscle damage condition is described as aching, burning, stabbing, sharp, cramping, pinching, dull, sore, tight, heavy Pain is negatively impacting patient's enjoyment of life, general activity, ability to function normally, sleep, mobility and work. Patient retired early due to this pain. He is currently taking oxycodone-acetaminophen 5/325mg 1 tab daily as needed for his pain. He reports this medication provides him some quality of life. His per PCP is retiring and will no longer be prescribing he was hoping to find a provider to take over prescribing this medication. In the past he has tried gabapentin and Lyrica, states he did not tolerate these medications. Endorses current use of Plavix Denies history of implantable devices, pacemaker defibrillator Denies current use of nicotine, tobacco, alcohol or illicit substances PFSH Medical History Coronary arteriosclerosis Exertional chest pain GERD (gastroesophageal reflux disease) HLD (hyperlipidemia) Primary osteoarthritis, right hand RBBB Surgical History History of arthroscopy of left shoulder History of laparoscopic cholecystectomy (~2012) Hx of appendectomy Hx of CABG (~2016) Hx of cardiac cath (~2012) Hx of colonoscopy (~2011) Hx of endoscopy (~2012) Hx of hernia repair Stented coronary artery Family History Father Myocardial infarction CAD (coronary artery disease) Mother CVA (cerebral vascular accident) Diabetes Social History Household Members: Spouse Housing: House Alcohol intake: current Alcohol intake frequency: holidays/special occasions only Patient Tobacco Use Status: Former Tobacco user service: Yes Current occupational status: retired Sexual orientation: Straight/Heterosexual Gender identity: Male Review of Systems Const All systems reviewed & are unremarkable except as noted in HPI and below Physical Exam Vital Signs: Last Vital Signs Pulse 52 07/29/24 13:05 BP 127/68 07/29/24 13:05 Pulse Ox 97 07/29/24 13:05 Oxygen Delivery Method Room Air 07/29/24 13:05 BMI result Body Mass Index 26.5 General: awake, alert, oriented. Answers questions appropriately. Fully engaged in examination. Skin: warm, dry, intact. well healed surgical scar left lower leg. HEENT: Normocephalic. Hearing intact. Cardiac: External chest normal in appearance. Respiratory: No cough, audible wheezing or stridor. Abdomen: without gross distension. MS: No obvious swelling or deformities. Able to transition from sit to stand unassisted. Ambulates with bilaterally normal heel strike and toe off full ROM BLE, 2+ pedal pulses bilaterally, CMS intact, no swelling Neurological: Oriented to person, place, time and situation. Thought process intact. No gait abnormalities appreciated. Psychiatric: Appropriate mood and affect. Good judgment and insight. Assessment & Plan Assessment & Plan (1) Chronic pain syndrome: Code(s): G89.4 - Chronic pain syndrome Category: Medical (2) Bilateral leg pain: Code(s): M79.604 - Pain in right leg; M79.605 - Pain in left leg Category: Medical Plan Luis Miguel presented to the office today for evaluation and management of his chronic bilateral leg pain. Discussed options for treatment including diagnostic interventional testing, epidural steroid injections, peripheral nerve stimulation with Sprint, RFA and more permanent neuromodulation. Informational pamphlets provided. Offered SCS trial with Jayleen, patient is not interested in interventional management at this time He was seeking to continue on his opioid medications as his pcp is retiring and will no longer prescribe. Advised patient that we focus on interventional management and he should try to transition to a new pcp who can continue prescribing his oxycodone for him. Patient declined alternative medications, states unable to tolerate Gabapentin and Lyrica did not help him in the past. Call the office if he wishes to proceed with SCS trial. All questions and concerns have been answered and patient agrees with the plan. Follow up after injections and sooner if needed. Coding Level of Care Code New Pt Level 4 (99383) Complex EM visit Add On G2211 Diagnoses Chronic pain syndrome G89.4 Bilateral leg pain M79.604; M79.605
== END 2024-07-29 13:34 | disposition home or self-care (01) ==
LOC: HO.PMC 12:46
PROVIDERS: PCP Internal Medicine; Referring Provider Internal Medicine; Visit Provider Registered Nurse Emergency
DX: G89.4 Chronic pain syndrome (principal); M79.604 Pain in right leg; M79.605 Pain in left leg
CPT/HCPCS: 99204; G2211

== ENCOUNTER → 2024-07-29 12:45 | Outpatient (BNVA) | payer MEDICARE, BC, SELFPAY | PROVIDERS: PCP Internal Medicine; Referring Provider Internal Medicine; Visit Provider Registered Nurse Emergency | DX: M79.604 Pain in right leg (principal); M79.605 Pain in left leg; G89.4 Chronic pain syndrome | CPT/HCPCS: 99202 ==